=== PATIENT | male | born 1930 | race Hispanic/Latino ===

== ENCOUNTER 2018-02-14 16:16 | Observation (INO) | payer OTHER, MEDICARE ==
[~2018-02-14] VITALS: Ht 160 cm; Wt 66.2 kg
[2018-02-14 16:43] LABS: BASOPHILS % (AUTO) 0.7 % (0.0-5.0); EOSINOPHILS % (AUTO) 1.4 % (0.0-8.0); HEMATOCRIT 36.2 % (42-54); LYMPHOCYTES % (AUTO) 16.1 % (21.0-51.0); MEAN CORPUSCULAR HEMOGLOBIN 31.6 pg (27.0-33.0); MEAN CORPUSCULAR HGB CONC 34.3 g/dL (32.0-36.0); MONOCYTES % (AUTO) 15.4 % (3.0-13.0); NEUTROPHILS % (AUTO) 66.4 % (40.0-77.0); PLATELET COUNT (AUTO) 113 K/uL (130-400); RED BLOOD CELL COUNT(AUTO) 3.94 MIL/uL (4.50-6.20); RED CELL DISTRIBUTION WIDTH 13.3 % (11.0-15.5)
[2018-02-14 16:52] LABS: CREATININE 1.4 mg/dL (0.5-1.5); POTASSIUM 3.5 mmol/L (3.5-5.1)
[2018-02-14 16:57] LABS: ALBUMIN 2.7 g/dL (3.5-5.0); BILIRUBIN,TOTAL 0.8 mg/dL (0.2-1.0); TOTAL PROTEIN, SERUM 7.7 g/dL (6.0-8.3)
[2018-02-14 17:14] LABS: APPEARANCE,URINE Turbid (CLEAR); BILIRUBIN,URINE Negative (NEGATIVE); COLOR,URINE Dark Yellow (YELLOW); GLUCOSE, URINE (UA) Negative (NEGATIVE); KETONES,URINE Negative (NEGATIVE); LEUKOCYTE ESTERASE ,URINE Large (NEGATIVE); NITRATE,URINE Positive (NEGATIVE); OCCULT BLOOD,URINE Moderate (NEGATIVE); PROTEIN,URINE POS 1+ (NEGATIVE)
[2018-02-14 17:21] LABS: BACTERIA,URINE Moderate /HPF (None Seen); MUCUS,URINE Few LPF (None Seen); RENAL EPITHELIAL CELLS,URINE Rare /HPF (None Seen); SQUAMOUS EPITHELIAL CELL,UR 0-2 /HPF (0-2); TRANSITIONAL EPI CELLS,URINE Few /HPF (None Seen); WBC,URINE >100 /HPF (0-1)
[2018-02-14] MEDS ORDERED: CEFTRIAXONE SODIUM 1 GM ONE (18:17)
[2018-02-14] MEDS ORDERED: IOPAMIDOL-370 75 ML VIAL IV ONE (19:02)
[2018-02-14] MEDS: SODIUM CHLORIDE 0.9% 1000ML 1,000 ML IV SCH (20:15)
[2018-02-14 21:40] VITALS: BP 145/79
[2018-02-14] MEDS ORDERED: SODIUM CHLORIDE 0.9% 1000ML 1,000 ML IV SCH (22:35)
[2018-02-14 22:40] VITALS: BP 147/70
[2018-02-14] MEDS ORDERED: ACETAMINOPHEN 325 MG TAB PO PRN ×2 (22:45)
[2018-02-14] MEDS ORDERED: HYDRALAZINE HCL 20 MG/ML VIAL IV PRN (22:45)
[2018-02-14] MEDS ORDERED: CEFTRIAXONE 1GM/D5W 50ML 50 ML IV SCH (22:45)
[2018-02-14] MEDS ORDERED: MORPHINE SULFATE 2 MG/ML 1ML SYG IV PRN (22:45)
[2018-02-14] MEDS ORDERED: POTASSIUM CHLORIDE 20MEQ/100ML 100 ML IV PRN (22:45)
[2018-02-14] MEDS ORDERED: LIDOCAINE HCL-MPF 1% 2ML VIAL IVP PRN (22:45)
[2018-02-14] MEDS ORDERED: NITROGLYCERIN 0.4 MG SL TAB SL PRN (22:45)
[2018-02-14] MEDS ORDERED: POTASSIUM CHLORIDE 10% ELIXIR 20 MEQ/15 ML UDCUP PO PRN (22:45)
[2018-02-14] MEDS ORDERED: ONDANSETRON HCL 4 MG/2 ML VIAL IV PRN (22:45)
[2018-02-14] MEDS ORDERED: POTASSIUM CHLORIDE 20 MEQ ERTAB PO PRN (22:45)
[2018-02-14] MEDS ORDERED: ACETAMINOPHEN 325 MG TAB ONE (23:39)
[2018-02-14] MEDS ORDERED: MEMA5TAB15 PO (23:47)
[2018-02-14] MEDS ORDERED: DONE5TAB33 PO (23:47)
[2018-02-14] MEDS ORDERED: ASPI-1197 PO (23:47)
[2018-02-15 00:20] VITALS: BP 147/70
[2018-02-15 04:15] VITALS: BP 111/58
[2018-02-15 05:50] LABS: CREATININE 1.3 mg/dL (0.5-1.5); POTASSIUM 3.5 mmol/L (3.5-5.1)
[2018-02-15 05:52] LABS: HEMATOCRIT 36.4 % (42-54); MEAN CORPUSCULAR HEMOGLOBIN 33.7 pg (27.0-33.0); MEAN CORPUSCULAR HGB CONC 36.3 g/dL (32.0-36.0); MEAN CORPUSCULAR VOLUME 92.8 fL (79-99); PLATELET COUNT (AUTO) 133 K/uL (130-400); RED BLOOD CELL COUNT(AUTO) 3.92 MIL/uL (4.50-6.20); RED CELL DISTRIBUTION WIDTH 13.2 % (11.0-15.5); WHITE BLOOD COUNT (AUTO) 6.4 K/uL (4.8-10.8)
[2018-02-15 08:11] VITALS: BP 124/63
[2018-02-15] MEDS: PANTOPRAZOLE SODIUM 40 MG TABLET.DR PO SCH (09:07)
[2018-02-15 11:49] VITALS: BP 120/69
[2018-02-15] MEDS: SODIUM CHLORIDE 0.9% 1000ML 1,000 ML IV SCH (12:55)
[2018-02-15 16:25] VITALS: BP 136/74
[2018-02-15] MEDS ORDERED: CEFTRIAXONE SODIUM 1 GM IVP SCH ×2 (18:00)
[2018-02-15 19:00] VITALS: BP 125/75
[2018-02-15] MEDS ORDERED: DONEPEZIL HCL 5 MG TAB PO SCH (21:00)
[2018-02-15] MEDS: MEMANTINE HCL 5 MG TABLET PO SCH (21:35)
[2018-02-15] MEDS ORDERED: MORPHINE SULFATE 4 MG/1ML SYG ONE (21:42)
[2018-02-16] VITALS: BP 130/73
[2018-02-16 04:00] VITALS: BP 139/77
[2018-02-16 05:05] LABS: CREATININE 1.4 mg/dL (0.5-1.5)
[2018-02-16 08:18] VITALS: BP 116/66
[2018-02-16] MEDS ORDERED: LEVO250T2 PO (08:38)
[2018-02-16] MEDS ORDERED: TAMS-1 PO (08:38)
[2018-02-16] MEDS: MEMANTINE HCL 5 MG TABLET PO SCH (08:44)
[2018-02-16] MEDS: PANTOPRAZOLE SODIUM 40 MG TABLET.DR PO SCH (08:44)
[2018-02-16] MEDS ORDERED: ASPIRIN 81MG TAB.CHEW PO SCH (09:00)
== END 2018-02-16 10:56 | disposition home or self-care (01) ==
LOC: EDH 16:16 → EDBD 16:16 → INTOOBSV 19:00 → 3BH 19:00
PROVIDERS: ADMIT Internal Medicine; ATTEND Internal Medicine
DX: N30.90 Cystitis, unspecified without hematuria (principal); B96.20 Unspecified Escherichia coli [E. coli] as the cause of diseases classified elsewhere; E87.1 Hypo-osmolality and hyponatremia; G30.9 Alzheimer's disease, unspecified; F02.80 Dementia in other diseases classified elsewhere, unspecified severity, without behavioral disturbance, psychotic disturbance, mood disturbance, and anxiety; I10 Essential (primary) hypertension; J84.10 Pulmonary fibrosis, unspecified; N20.0 Calculus of kidney; N32.0 Bladder-neck obstruction; N40.0 Benign prostatic hyperplasia without lower urinary tract symptoms; Z85.038 Personal history of other malignant neoplasm of large intestine; Z87.891 Personal history of nicotine dependence; Z96.698 Presence of other orthopedic joint implants; Z80.9 Family history of malignant neoplasm, unspecified
CPT/HCPCS: 36415 ×3; 74178; 76705; 80048 ×2; 80053; 81001; 82150; 83690; 84295; 84443; 85025; 85027; 87040 ×2; 87088; 87186; 92610; 93005; 96374; 99285; A4218; G0378 ×40; G8996; G8997; G8998; J0696 ×3; J2270; J7030; Q9967